=== PATIENT | female | born 1950 | race Caucasian/White ===

== ENCOUNTER → 2017-06-06 | Outpatient (CLI) | payer MEDICARE, OTHER ==
--- NOTE | 2017-06-06 11:16 | REPMRS ---
Patient History The patient states she had a clinical breast exam in 01/2017. Patient is postmenopausal. Family history of ovarian cancer in sister at age 40. Taking estrogen for 38 years. Digital Woman Screen Mammo: June 06, 2017 - Exam #: [id number] Bilateral CC and MLO view(s) were taken. Technologist: Carlie Raymundo, Technologist Prior study comparison: April 25, 2016, digital woman screen mammo performed at [facility]. 2014, digital bilateral screening mammo, performed at [facility]. FINDINGS: The breast tissue is heterogeneously dense. This may lower the sensitivity of mammography. There has been no change in the appearance of the mammogram from the prior studies. There is a moderate amount of residual fibroglandular tissue which is fairly symmetric. There is no interval development of dominant mass, areas of architectural distortion, or clustered microcalcification typical of malignancy. ASSESSMENT: BI-RADS/ACR category 1 mammogram. Negative. Recommendation Routine screening mammogram in 1 year (for women over age 40). This mammogram was interpreted with the aid of an FDA-approved computer-aided dectection system. Electronically Signed By: Trevon Rosales MD 06/06/17 [id number]
--- NOTE | 2017-06-07 09:12 | DEXA ---
AP SPINE L1 - L4 1.018 -1.4 0.2 LT FEMUR TOTAL 0.889 -0.9 0.3 RT FEMUR TOTAL 0.860 -1.2 0.1 TOTAL BODY TOTAL OTHER DUAL FEMUR FRAX* ASSESSMENT Risk factors: Not performed. 10 year probability of fracture Major osteoporotic fracture % Hip fracture % COMMENTS: There is low bone density of the spine and hips. FOLLOW-UP: Recommendation for the next bone density exam: 2 years. MTDD
== END ==
LOC: M WHC 09:43
PROVIDERS: ATTEND Internal Medicine
DX: Z12.31 Encounter for screening mammogram for malignant neoplasm of breast (principal); Z78.0 Asymptomatic menopausal state; Z80.41 Family history of malignant neoplasm of ovary; Z92.23 Personal history of estrogen therapy
CPT/HCPCS: 77080; G0202

== ENCOUNTER 2018-05-14 09:52 | Outpatient (RCR) | payer MEDICARE, OTHER | END 2018-06-08 | LOC: M PT 09:52 | DX: Z47.89 Encounter for other orthopedic aftercare (principal); M25.562 Pain in left knee; M17.12 Unilateral primary osteoarthritis, left knee; M54.2 Cervicalgia; G89.29 Other chronic pain; M54.5 Low back pain | CPT/HCPCS: 97110 ==

== ENCOUNTER → 2018-06-03 | Outpatient (CLI) | payer MEDICARE, OTHER | LOC: M WHC 08:12 | DX: Z12.31 Encounter for screening mammogram for malignant neoplasm of breast (principal); N60.31 Fibrosclerosis of right breast; N60.32 Fibrosclerosis of left breast | CPT/HCPCS: 77067 ==

== ENCOUNTER 2019-04-02 11:29 | Outpatient (RCR) | payer MEDICARE, OTHER | END 2019-04-08 | LOC: M PT 11:29 | PROVIDERS: ATTEND Physician Assistant | DX: Z51.89 Encounter for other specified aftercare (principal); M25.561 Pain in right knee; M25.562 Pain in left knee ==

== ENCOUNTER 2019-04-30 07:39 | Outpatient (RCR) | payer MEDICARE, OTHER | END 2019-05-09 | LOC: M PT 07:39 | PROVIDERS: ATTEND Physician Assistant | DX: Z51.89 Encounter for other specified aftercare (principal); M25.561 Pain in right knee; M25.562 Pain in left knee ==

== ENCOUNTER 2021-02-14 12:31 | Emergency (ER) | payer MEDICARE, OTHER ==
[~2021-02-14] VITALS: Ht 160 cm; Wt 79.5 kg
[2021-02-14 12:46] VITALS: BP 127/73
[2021-02-15] MEDS ORDERED: HYDR12.55 PO (09:36)
[2021-02-15] MEDS ORDERED: OMEP40CA97 PO (09:36)
[2021-02-15] MEDS ORDERED: ESTR1TAB PO (09:36)
[2021-02-15] MEDS ORDERED: IBUP-1022 PO (09:36)
[2021-02-15] MEDS ORDERED: TRAV04OPD OP (09:36)
[2021-02-15] MEDS ORDERED: DOXY1CAP60 PO (09:36)
[2021-02-15] MEDS ORDERED: CYCL-707 PO (09:36)
[2021-02-15] MEDS ORDERED: ZOLP5TAB PO (09:36)
[2021-02-15] MEDS ORDERED: METR0.7533 TOP (09:36)
[2021-02-15] MEDS ORDERED: TRET0.02 EXT (09:36)
== END 2021-02-14 14:19 | disposition left against medical advice (07) ==
LOC: M ED 12:31
DX: Z53.21 Procedure and treatment not carried out due to patient leaving prior to being seen by health care provider (principal)

== ENCOUNTER 2021-02-15 08:26 | Emergency (ER) | payer MEDICARE, OTHER ==
[~2021-02-15] VITALS: Ht 160 cm; Wt 82.1 kg
[2021-02-15] MEDS ORDERED: NS 500 ML IV ONE (09:10)
[2021-02-15] MEDS ORDERED: OMEP40CA97 PO (09:36)
[2021-02-15] MEDS ORDERED: ZOLP5TAB PO (09:36)
[2021-02-15] MEDS ORDERED: TRAV04OPD OP (09:36)
[2021-02-15] MEDS ORDERED: DOXY1CAP60 PO (09:36)
[2021-02-15] MEDS ORDERED: ESTR1TAB PO (09:36)
[2021-02-15] MEDS ORDERED: HYDR12.55 PO (09:36)
[2021-02-15] MEDS ORDERED: IBUP-1022 PO (09:36)
[2021-02-15] MEDS ORDERED: METR0.7533 TOP (09:36)
[2021-02-15] MEDS ORDERED: CYCL-707 PO (09:36)
[2021-02-15] MEDS ORDERED: TRET0.02 EXT (09:36)
[2021-02-15 09:38] LABS: BASO # 0.1 10^3/uL (0.0-0.2); BASO % 2.1 % (0.0-1.0); EOS # 0.3 10^3/uL (0.0-0.5); EOS % 4.8 % (0.0-3.0); HEMATOCRIT 42.6 % (36.0-47.0); HEMOGLOBIN 14.1 g/dl (12.0-15.5); LYMPH # 1.7 10^3/uL (1.5-5.0); LYMPH % 24.9 % (24.0-44.0); MEAN CORPUSCULAR HEMOGLOBIN 30.1 pg (27.0-33.0); MEAN CORPUSCULAR HGB CONC 33.1 g/dl (32.0-36.5); MEAN CORPUSCULAR VOLUME 90.8 fl (80.0-96.0); MONO # 0.7 10^3/uL (0.0-0.8); MONO % 10.9 % (2.0-8.0); NEUTROPHILS # 3.8 10^3/uL (1.5-8.5); NEUTROPHILS % 56.7 % (36.0-66.0); PLATELET COUNT, AUTOMATED 329 10^3/uL (150-450); RED BLOOD COUNT 4.69 10^6/uL (4.00-5.40); WHITE BLOOD COUNT 6.7 10^3/uL (4.0-10.0)
--- NOTE | 2021-02-15 09:54 | REP ---
INDICATION: abdominal pain. COMPARISON: None. TECHNIQUE: Portable FINDINGS: The technique utilized in obtaining the radiograph has magnified the cardiac silhouette and accentuated the interstitial markings. The superior mediastinal structures are midline. The cardiac silhouette is unremarkable in size, shape, and position. The diaphragmatic surfaces of the lungs are regular, and the costophrenic angles are clear. The pulmonary parry are clear. The imaged osseous structures are intact. IMPRESSION: There is no acute cardiopulmonary disease. <Electronically signed by Ezra Mcbride > 02/15/21 [id number]
[2021-02-15 10:09] LABS: ALBUMIN 3.6 GM/DL (3.2-5.2); ALT/SGPT 28 U/L (12-78); BILIRUBIN,DIRECT 0.1 MG/DL (0.0-0.2); BILIRUBIN,TOTAL 0.5 MG/DL (0.2-1.0); BLOOD UREA NITROGEN 24 MG/DL (7-18); CALCIUM LEVEL 9.6 MG/DL (8.8-10.2); CARBON DIOXIDE LEVEL 31 MEQ/L (21-32); CHLORIDE LEVEL 102 MEQ/L (98-107); CK-MB VALUE MASS < 1.0 NG/ML (<3.6); CPK CREATINE PHOSPHOKINASE 66 U/L (26-192); CREATININE FOR GFR 1.14 MG/DL (0.55-1.30); GLOMERULAR FILTRATION RATE 50.2 (>39); GLUCOSE, FASTING 106 MG/DL (70-100); LIPASE 79 U/L (73-393); MB/CK RELATIVE INDEX 1.52 (< OR =4); POTASSIUM SERUM 3.5 MEQ/L (3.5-5.1); SODIUM LEVEL 138 MEQ/L (136-145); TOTAL PROTEIN 7.5 GM/DL (6.4-8.2); TROPONIN I < 0.02 NG/ML (< 0.10)
[2021-02-15] MEDS ORDERED: ISOVUE-370 76% 100ML VIAL As Ordered ONE (10:47)
--- NOTE | 2021-02-15 11:21 | REP ---
INDICATION: abdl pain x 2 mo, d. COMPARISON: 03/01/2016 the latest prior TECHNIQUE: Standard helical technique after the intravenous administration of 100 cc Isovue 370. No oral bowel preparatory contrast was administered prior to the exam. I have been given information that this patient has had prior CT scans from outside institutions. They are not available at this time. The patient is in the emergency department with acute abdominal pain with stat report requested. FINDINGS: The lung bases are clear and unchanged The patient is status post cholecystectomy. The liver, spleen, pancreas, adrenal glands, and kidneys are unchanged. There is a simple Bosniak class 1 right renal cyst status quo. There is a 3 mm sized low-density lesions seen in the interpolar region of the right kidney along the lateral cortex too small for precise CT characterization. This was not present on the prior exam. The abdominal aorta and para-aortic regions are unchanged. There is descending colon and sigmoid colon diverticulosis. There is no free fluid or free air. There is no evidence of a mass or adenopathy. The imaged osseous structures are essentially unchanged with the exception of development of degenerative disc disease at the L2-3 level since the prior exam. IMPRESSION: 1. There is no evidence of acute disease or significant change compared to the prior exam as described above. If when the prior examinations become available for review an addendum report can be made if necessary. 2. Unchanged right renal cyst with evidence of possible additional tiny right renal cyst as described above. Since this was not present on the prior exam and since are no more recent priors for comparison I would recommend a 3 month follow-up exam. The tiny cystic-appearing structures too small for precise CT characterization. 3. There is colonic diverticulosis as described above. 4. Other findings as described above. <Electronically signed by Ezra Mcbride > 02/15/21 [id number]
[2021-02-15 13:00] VITALS: BP 160/97
--- NOTE | 2021-02-15 19:01 | ED PDOC ---
Post-Departure Follow-Up dr pollard faxed formal report of ct abd/p for fu Mitchel Ayala MD Feb 15, 2021 19:01
--- NOTE | 2021-02-15 19:49 | ECGEPIP ---
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
== END 2021-02-15 13:24 | disposition home or self-care (01) ==
LOC: M ED 08:26
DX: R10.9 Unspecified abdominal pain (principal); R19.7 Diarrhea, unspecified; I10 Essential (primary) hypertension; E07.9 Disorder of thyroid, unspecified; Z87.19 Personal history of other diseases of the digestive system; Z88.8 Allergy status to other drugs, medicaments and biological substances; Z79.899 Other long term (current) drug therapy
CPT/HCPCS: 71045; 74177; 80047; 80048; 80076; 81001; 82550; 82553; 83605; 83690; 84484; 85025; 87040; 87505; 87798; 93005; 93041; 96360; 99285; Q9967

== ENCOUNTER → 2021-03-10 | Outpatient (CLI) | payer MEDICARE, OTHER ==
[~2021-03-10] MED LIST: CYCL-707 PO; DOXY1CAP60 PO; ESTR1TAB PO; HYDR12.55 PO; IBUP-1022 PO; METR0.7533 TOP; OMEP40CA4 PO; TRAV04OPD OP; TRET0.02 EXT; ZOLP5TAB PO
--- NOTE | 2021-03-10 11:37 | REPMRS ---
Patient History The patient states she has not had a clinical breast exam in over a year. Family history of ovarian cancer at age 40 in sister. Taking estrogen for 39 years. 10 lb intentional weight loss. Patient states no breast complaints today. Patient has signed MRS History Sheet. Digital Woman Screen Mammo: March 10, 2021 - Exam #: [id number] Bilateral CC and MLO view(s) were taken. Technologist: Abimbola Da Silva RT Prior study comparison: June 03, 2018, bilateral digital woman screen mammo performed at [facility]. June 06, 2017, digital woman screen mammo performed at [facility]. April 25, 2016, digital woman screen mammo performed at [facility]. FINDINGS: There are scattered fibroglandular densities. The Volpara volumetric breast density category is:B. There has been no change in the appearance of the mammogram from the prior studies. There is a mild amount of scattered fibroglandular density which is fairly symmetric. There is no interval development of dominant mass, architectural distortion, or grouped microcalcification suggestive of malignancy. 3-D tomosynthesis shows no additional findings. Assessment: BI-RADS/ACR category 1 mammogram. Negative Mammogram. Recommendation Routine screening mammogram of both breasts in 1 year (for women over age 40). This patient's [facility] Lifetime Breast Cancer Risk is estimated at 2.3 %. This mammogram was interpreted with the aid of an FDA-approved computer-aided dectection system. Electronically Signed By: Ministerio Silvestre MD 03/10/21 [id number]
== END ==
LOC: M WHC 09:55
PROVIDERS: ATTEND Internal Medicine
DX: Z12.31 Encounter for screening mammogram for malignant neoplasm of breast (principal); Z80.41 Family history of malignant neoplasm of ovary; R63.4 Abnormal weight loss

== ENCOUNTER 2021-04-07 10:21 | Outpatient (RCR) | payer MEDICARE, OTHER | END 2021-04-08 | disposition still patient (30) | LOC: M PT 10:21 | PROVIDERS: ATTEND Orthopaedic Surgery Orthopaedic Surgery of the Spine | DX: M54.32 Sciatica, left side (principal); G89.29 Other chronic pain ==

== ENCOUNTER 2021-04-26 10:02 | Outpatient (RCR) | payer MEDICARE, OTHER | END 2021-05-09 | LOC: M PT 10:02 | PROVIDERS: ATTEND Orthopaedic Surgery Orthopaedic Surgery of the Spine | DX: M54.40 Lumbago with sciatica, unspecified side (principal); G89.29 Other chronic pain ==

== ENCOUNTER 2022-04-11 20:04 | Emergency (ER) | payer MEDICARE, OTHER ==
[~2022-04-11] VITALS: Ht 162.6 cm; Wt 72.3 kg
[~2022-04-11 20:04] MED LIST changes: -DOXY1CAP60 PO; +DOXY50CA51 PO
[2022-04-11] MEDS ORDERED: ISOVUE-370 76% 100ML VIAL As Ordered ONE (20:56)
[2022-04-11 20:59] LABS: BASO # 0.1 10^3/uL (0.0-0.2); BASO % 1.3 % (0.0-1.0); EOS # 0.2 10^3/uL (0.0-0.5); EOS % 1.9 % (0.0-3.0); HEMATOCRIT 42.6 % (36.0-47.0); HEMOGLOBIN 14.6 g/dl (12.0-15.5); LYMPH # 3.1 10^3/uL (1.5-5.0); LYMPH % 31.7 % (24.0-44.0); MEAN CORPUSCULAR HEMOGLOBIN 31.3 pg (27.0-33.0); MEAN CORPUSCULAR HGB CONC 34.3 g/dl (32.0-36.5); MEAN CORPUSCULAR VOLUME 91.4 fl (80.0-96.0); MONO # 0.9 10^3/uL (0.0-0.8); MONO % 9.6 % (2.0-8.0); NEUTROPHILS # 5.3 10^3/uL (1.5-8.5); NEUTROPHILS % 55.1 % (36.0-66.0); PLATELET COUNT, AUTOMATED 349 10^3/uL (150-450); RED BLOOD COUNT 4.66 10^6/uL (4.00-5.40); WHITE BLOOD COUNT 9.7 10^3/uL (4.0-10.0)
[2022-04-11] MEDS ORDERED: MORPHINE 2 MG/ML 1ML VIAL IV ONE (21:05)
[2022-04-11 21:07] LABS: INR 0.96; PROTHROMBIN TIME 13.2 SECONDS (12.7-14.5)
[2022-04-11 21:08] LABS: PARTIAL THROMBOPLASTIN TIME 35.3 SECONDS (25.9-37.0)
[2022-04-11 21:12] LABS: CK-MB VALUE MASS 1.7 NG/ML (<3.6); MB/CK RELATIVE INDEX 1.85 (< OR =4)
[2022-04-11 21:20] LABS: BILIRUBIN,DIRECT 0.1 MG/DL (0.0-0.2); BILIRUBIN,TOTAL 0.4 MG/DL (0.2-1.0); CALCIUM LEVEL 10.1 MG/DL (8.8-10.2); CREATININE FOR GFR 1.44 MG/DL (0.55-1.30); FREE T4 1.07 NG/DL (0.76-1.46); GLOMERULAR FILTRATION RATE 38.2 (>39); POTASSIUM SERUM 3.7 MEQ/L (3.5-5.1); THYROID STIMULATING HORMONE 2.77 uIU/ML (0.358-3.740); TOTAL PROTEIN 8.4 GM/DL (6.4-8.2)
[2022-04-11 22:34] LABS: CK-MB VALUE MASS 1.2 NG/ML (<3.6); MB/CK RELATIVE INDEX 1.56 (< OR =4)
[2022-04-11 22:50] VITALS: BP 133/65
== END 2022-04-11 23:05 | disposition home or self-care (01) ==
LOC: M ED 20:04
DX: R07.9 Chest pain, unspecified (principal); R06.02 Shortness of breath; I10 Essential (primary) hypertension; E07.9 Disorder of thyroid, unspecified; M54.9 Dorsalgia, unspecified; Z88.8 Allergy status to other drugs, medicaments and biological substances; Z79.899 Other long term (current) drug therapy
CPT/HCPCS: 71275; 80047; 80048; 80076; 82550; 82553; 83690; 84439; 84443; 84484; 85025; 85610; 85730; 93005; 93041; 94760; 96374; 99285; J2270; Q9967

== ENCOUNTER → 2023-03-07 | Outpatient (CLI) | payer MEDICARE, OTHER ==
[~2023-03-07] MED LIST changes: +METR0.7526 TOP; -METR0.7533 TOP
[2023-03-07 11:34] LABS: ALBUMIN 3.6 G/DL (3.2-5.2); CALCIUM LEVEL 10.2 MG/DL (8.3-10.6); CREATININE FOR GFR 1.03 MG/DL (0.55-1.30); GLOMERULAR FILTRATION RATE 56.1 (>39); PHOSPHORUS LEVEL 4.2 MG/DL (2.4-5.1); POTASSIUM SERUM 4.3 MMOL/L (3.5-5.1)
== END ==
LOC: M LAB 10:31
PROVIDERS: ATTEND Internal Medicine Nephrology
DX: N18.30 Chronic kidney disease, stage 3 unspecified (principal); N25.0 Renal osteodystrophy; N25.81 Secondary hyperparathyroidism of renal origin; I15.1 Hypertension secondary to other renal disorders; N28.89 Other specified disorders of kidney and ureter; E87.1 Hypo-osmolality and hyponatremia; E55.9 Vitamin D deficiency, unspecified; R76.8 Other specified abnormal immunological findings in serum

== ENCOUNTER → 2023-04-22 | Outpatient (REF) | payer MEDICARE, OTHER ==
[2023-04-22 12:00] LABS: APPEARANCE, URINE CLEAR (CLEAR); BACTERIA, URINE AUTO NEGATIVE (NEGATIVE); BILIRUBIN, URINE AUTO NEGATIVE (NEGATIVE); BLOOD, URINE BLOOD NEGATIVE (NEGATIVE); COLOR, URINE YELLOW (YELLOW); GLUCOSE, URINE (UA) AUTO NEGATIVE (NEGATIVE); KETONE, URINE AUTO NEGATIVE (NEGATIVE); LEUKOCYTE ESTERASE, URINE AUTO NEGATIVE (NEGATIVE); NITRITE, URINE AUTO NEGATIVE (NEGATIVE); PROTEIN, URINE AUTO NEGATIVE (NEGATIVE); RBC, URINE AUTO 1 /HPF (0-3); SPECIFIC GRAVITY URINE AUTO 1.021 (1.002-1.035); SQUAMOUS EPITHELIAL CELL UR AU 3 /HPF (0-6); UROBILINOGEN, URINE AUTO 0.2 mg/dL (0.0-2.0); WBC, URINE AUTO 0 /HPF (0-3)
[2023-04-22 12:07] LABS: TOTAL PROTEIN,RANDOM URINE 13.5 MG/DL (0.0-14.0)
[2023-04-22 12:12] LABS: CREATININE,RANDOM URINE 147.6 MG/DL
== END ==
LOC: M LAB REF 10:56
PROVIDERS: ATTEND Internal Medicine
DX: K13.79 Other lesions of oral mucosa (principal); M19.90 Unspecified osteoarthritis, unspecified site

== ENCOUNTER → 2023-05-21 | Outpatient (CLI) | payer MEDICARE, OTHER ==
[2023-05-21 15:59] LABS: ALBUMIN 3.9 G/DL (3.2-5.2); CALCIUM LEVEL 9.8 MG/DL (8.3-10.6); CREATININE FOR GFR 1.11 MG/DL (0.55-1.30); GLOMERULAR FILTRATION RATE 51.4 (>39); PHOSPHORUS LEVEL 3.1 MG/DL (2.4-5.1); POTASSIUM SERUM 4.3 MMOL/L (3.5-5.1)
== END ==
LOC: M LAB 15:08
DX: N18.30 Chronic kidney disease, stage 3 unspecified (principal); N25.0 Renal osteodystrophy; N25.81 Secondary hyperparathyroidism of renal origin; N28.89 Other specified disorders of kidney and ureter; E87.1 Hypo-osmolality and hyponatremia; E55.9 Vitamin D deficiency, unspecified; R76.8 Other specified abnormal immunological findings in serum

== ENCOUNTER → 2023-07-08 | Outpatient (CLI) | payer MEDICARE, OTHER ==
[2023-07-08 11:37] LABS: ALBUMIN 3.6 G/DL (3.2-5.2); CREATININE FOR GFR 1.03 MG/DL (0.55-1.30); GLOMERULAR FILTRATION RATE 56.1 (>39); PHOSPHORUS LEVEL 3.8 MG/DL (2.4-5.1); POTASSIUM SERUM 4.2 MMOL/L (3.5-5.1)
== END ==
LOC: M LAB 10:16
PROVIDERS: ATTEND Internal Medicine Nephrology
DX: N18.30 Chronic kidney disease, stage 3 unspecified (principal); N25.0 Renal osteodystrophy; N25.81 Secondary hyperparathyroidism of renal origin; N28.89 Other specified disorders of kidney and ureter; E87.1 Hypo-osmolality and hyponatremia; E55.9 Vitamin D deficiency, unspecified; R76.8 Other specified abnormal immunological findings in serum

== ENCOUNTER 2023-07-12 17:12 | Emergency (ER) | payer MEDICARE, OTHER ==
[~2023-07-12] VITALS: Ht 162.6 cm; Wt 74.3 kg
[2023-07-12] MEDS ORDERED: BOOSTRIX VACCINE (TETANUS/DIPHTH/ACEL. PERTUSSIS) 0.5ML SYR IM.IMMUN ONE (18:45)
[2023-07-12] MEDS ORDERED: ACETAMINOPHEN TAB 650MG DOSE (2X325MG) PO ONE (18:45)
[2023-07-12 21:59] VITALS: BP 137/81; TEMP 97.9; O2SAT 100
== END 2023-07-12 21:59 | disposition left against medical advice (07) ==
LOC: M ED 17:12
DX: S01.01XA Laceration without foreign body of scalp, initial encounter (principal); W10.9XXA Fall (on) (from) unspecified stairs and steps, initial encounter; Y92.009 Unspecified place in unspecified non-institutional (private) residence as the place of occurrence of the external cause; I10 Essential (primary) hypertension; E03.9 Hypothyroidism, unspecified; Z96.652 Presence of left artificial knee joint; M25.78 Osteophyte, vertebrae; Z79.899 Other long term (current) drug therapy; Z88.1 Allergy status to other antibiotic agents; Z88.8 Allergy status to other drugs, medicaments and biological substances

== ENCOUNTER → 2024-02-14 | Outpatient (CLI) | payer MEDICARE, OTHER ==
[~2024-02-14] MED LIST changes: +DOXY50CA35 PO; -DOXY50CA51 PO
[2024-02-14 15:45] LABS: ALBUMIN 3.4 G/DL (3.2-5.2); CALCIUM LEVEL 10.1 MG/DL (8.3-10.6); CREATININE FOR GFR 1.1 MG/DL (0.55-1.30); GLOMERULAR FILTRATION RATE 51.8 (>39); PHOSPHORUS LEVEL 3.9 MG/DL (2.4-5.1); POTASSIUM SERUM 4.6 MMOL/L (3.5-5.1)
== END ==
LOC: M LAB 14:32
PROVIDERS: ATTEND Internal Medicine Nephrology
DX: N18.30 Chronic kidney disease, stage 3 unspecified (principal); N25.0 Renal osteodystrophy; N25.81 Secondary hyperparathyroidism of renal origin; I15.1 Hypertension secondary to other renal disorders; N28.89 Other specified disorders of kidney and ureter; E87.1 Hypo-osmolality and hyponatremia; E55.9 Vitamin D deficiency, unspecified; R76.8 Other specified abnormal immunological findings in serum

== ENCOUNTER → 2024-03-03 | Outpatient (CLI) | payer MEDICARE, OTHER ==
[~2024-03-03] MED LIST changes: +E-Z-GAS II EFFERVESCENT PACKET (SODIUM BICARB./CITRIC ACID/SIMETHICONE) As Ordered ONE; +E-Z-HD 98% w/w 340GM SUSP BTL As Ordered ONE; +E-Z-PAQUE 96% w/w SUSP 176GM BTL As Ordered ONE
== END ==
LOC: M RAD 07:26
PROVIDERS: ATTEND Student in an Organized Health Care Education/Training Program
DX: R13.10 Dysphagia, unspecified (principal)